=== PATIENT | female | born 1970 | race Caucasian/White ===

== ENCOUNTER 2016-09-30 16:58 | Emergency (ER) | payer MEDICARE, BC, OTHER, MEDICAID ==
[2016-09-30 17:39] VITALS: BP 135/91
--- NOTE | 2016-09-30 17:58 | UC ---
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 Rash was first noted yesterday. She does not seem to be bothered by it. Rash is concentrated in her groin and is not present elsewhere. No history of similar rashes. She has no recent illness. Cortisone cream was applied without improvement. - History of Current Complaint Chief Complaint: UCSkin Stated Complaint: RASH - Allergy/Home Medications Allergies/Adverse Reactions: Allergies Allergy/AdvReac Type Severity Reaction Status Date / Time Azithromycin Allergy Rash Verified 09/30/16 17:26 Fluoxetine [From Prozac] Allergy Rash Verified 09/30/16 17:26 Review of Systems Constitutional: Negative Skin: Rash Eyes: Negative ENT: Negative Respiratory: Negative Cardiovascular: Negative Gastrointestinal: Negative Genitourinary: Negative Motor: Negative Neurovascular: Negative Musculoskeletal: Negative Neurological: Negative Psychological: Negative All Other Systems Reviewed And Are Negative: Yes PMH/Surg Hx/FS Hx/Imm Hx Previously Healthy: No - developmental disability - Surgical History Surgical History: Yes Surgery Procedure, Year, and Place: Hysterectomy. oophorectomy. Bowel obstruction - Family History Known Family History: Positive: Other - no skin disorders, mother and father ALW - Social History Alcohol Use: None Substance Use Type: None Smoking Status (MU): Never Smoked Tobacco Physical Exam Triage Information Reviewed: Yes Completion Of Physical Exam Limited Due To: Other - patient is extremely anxious with a developmental disability, her cooperation is limited Appearance: Well-Appearing - anxious Vital Signs: Initial Vital Signs Temp 97.4 F 09/30/16 17:26 Pulse 92 09/30/16 17:26 Resp 18 09/30/16 17:26 BP 135/91 09/30/16 17:26 Pulse Ox 98 09/30/16 17:26 Vital Signs Reviewed: Yes Skin: Positive: rashes - well demarcated erythematous rash, with confluent macules Course/Dx - Course Course Of Treatment: Exam and location was consistent with cutaneous yeast infection. Recommend topical nystatin and keeping the area clean and dry. - Differential Diagnoses - Skin Complaint Differential Diagnoses: Cellulitis, Eczema, Impetigo, Scabies - Diagnoses Provider Diagnoses: 1. Cutaneous yeast infection Discharge - Discharge Plan Condition: Stable Disposition: HOME Prescriptions: Nystatin CREAM* [Nystatin Cream*] 1 applic TOPICAL BID #1 tube Additional Instructions: Activity: No restrictions Diagnosis: Rash - likely yeast Instructions: 1. Apply nystatin cream twice daily, continue application for 2 days after resolution of rash 2. Please keep the area clean and dry, specifically pat the groin dry after bathing
== END 2016-09-30 18:00 | disposition home or self-care (01) ==
LOC: UCEAST 16:58
DX: B35.6 Tinea cruris (principal); Z88.1 Allergy status to other antibiotic agents
CPT/HCPCS: 99212; G0463

== ENCOUNTER 2016-10-11 15:29 | Emergency (ER) | payer MEDICARE, BC, MEDICAID ==
[2016-10-11 17:09] VITALS: BP 142/98
--- NOTE | 2016-10-11 18:20 | RAD ---
INDICATION: Nasal bone injury COMPARISON: None TECHNIQUE: Routine 3 view imaging was performed. FINDINGS: The anterior nasal bones and the nasal process of the maxilla are intact. The visualized paranasal sinuses are clear. The soft tissue elements are normal. IMPRESSION: NEGATIVE EXAMINATION.
--- NOTE | 2016-10-11 18:21 | RAD ---
INDICATION: Neck pain COMPARISON: None TECHNIQUE: AP and lateral imaging was performed. This is a limited study. FINDINGS: Bones: There are no acute bony findings. C7 is not adequately visualized, however. There is moderate mid cervical facet arthropathy.. Craniocervical junction: The atlantodental interval is normal. There is limited evaluation of the odontoid on the AP view. Alignment: There is tilting of the head to the right. Alignment is otherwise normal Disc spaces: The disc spaces are well-maintained Soft tissues: The prevertebral soft tissues are normal. IMPRESSION: LIMITED STUDY. NO ACUTE FINDINGS IDENTIFIED . MID CERVICAL SPINE ARTHRITIC CHANGE. TILTING OF THE HEAD TO THE RIGHT.
--- NOTE | 2016-10-11 18:53 | UC ---
Head Injury HPI - HPI Summary HPI Summary: FALL YESTERDAY WHILE LEANING FORWARD TO PHOTO [employer]APH[employer] LIBRARIAN i[employer] FROM GROUND. BRUISING TO NOSE AND SCANT CRUSTED BLOOD IN NARES. NO LOC. NO ABNORMAL INTERACTION. NO PAINFUL RESPONSE. INTERACTING WITH STAFF. NO N/V. NO CHANGES IN BALANCE. - History Of Current Complaint Chief Complaint: UCGeneralIllness Stated Complaint: FACIAL INJURY Time Seen by Provider: 10/11/16 17:22 Hx Obtained From: Patient, Family/Public Services Librarian Hx From Patient Unobtainable Due To: Other - LOW MENTAL FUNCTIONING Onset/Duration: Sudden Onset, Lasting Days, Resolved Severity Currently: None Severity Initially: Mild Character: Dull Aggravating Factor(s): Nothing Alleviating Factor(s): Nothing Associated Signs And Symptoms: Positive: Epistaxis - NONE REPORTED, SCANT DRIED BLOOD IN NARES. Negative: LOC (Time In Secs./Mins/Hrs), LOC Duration Unknown, Confusion, Memory Loss, Seizure, Dental Malocclusion, Neck Pain, Nausea, Vomiting - Risk Factors SDH Risk Factor: Negative - Allergies/Home Medications Allergies/Adverse Reactions: Allergies Allergy/AdvReac Type Severity Reaction Status Date / Time Azithromycin Allergy Rash Verified 10/11/16 16:59 Erythromycin Allergy Unknown Verified 10/11/16 17:07 Reaction Details Fluoxetine [From Prozac] Allergy Rash Verified 10/11/16 16:59 Macrolides and Ketolides Allergy Unknown Verified 10/11/16 17:07 Reaction Details Streptogramins Allergy Unknown Verified 10/11/16 17:07 Reaction Details Home Medications: Home Medications Cetirizine* [ZyrTEC*] 10 mg PO DAILY 10/11/16 [History Confirmed 10/11/16] Clonazepam 0.5 mg PO 10/11/16 [History] Conjugated Estrogens TAB* [Premarin TAB*] 7.5 mg PO BEDTIME 10/11/16 [History Confirmed 10/11/16] Docusate CAP* [Colace Cap*] 100 mg PO BID 10/11/16 [History Confirmed 10/11/16] Famciclovir (Bulk) [Famciclovir] 10/11/16 [History] Fenofibrate mg PO 10/11/16 [History] Mirtazapine 7.5 mg PO 10/11/16 [History] Montelukast Sodium TAB* [Singulair 10 MG TAB*] 1 tab PO DAILY 10/11/16 [History Confirmed 10/11/16] Nutritional Supplements [Ensure] 10/11/16 [History] Risperidone [Risperdal] 0.5 mg PO BID 10/11/16 [History Confirmed 10/11/16] Sertraline HCl [Zoloft] 50 mg PO DAILY 10/11/16 [History Confirmed 10/11/16] Wheat Dextrin [Benefiber] 1 pow PO 10/11/16 [History] PMH/Surg Hx/FS Hx/Imm Hx Previously Healthy: Yes - Surgical History Surgical History: Yes Surgery Procedure, Year, and Place: Hysterectomy. oophorectomy. Bowel obstruction. Hernia repair - Family History Known Family History: Positive: Other - no skin disorders, mother and father ALW - Social History Occupation: Disabled Alcohol Use: None Substance Use Type: None Smoking Status (MU): Never Smoked Tobacco Review of Systems Constitutional: Negative Skin: Bruising - NOSE Eyes: Negative ENT: Negative Respiratory: Negative Cardiovascular: Negative Gastrointestinal: Negative Genitourinary: Negative Motor: Negative Neurovascular: Negative Musculoskeletal: Negative Neurological: Negative Psychological: Negative All Other Systems Reviewed And Are Negative: Yes Physical Exam Triage Information Reviewed: Yes Completion Of Physical Exam Limited Due To: Other - LOW MENTAL FUNCTIONING Appearance: Well-Appearing, No Pain Distress, Well-Nourished Vital Signs: Initial Vital Signs Temp 97.2 F 10/11/16 17:00 Pulse 87 10/11/16 17:00 Resp 18 10/11/16 17:00 BP 142/98 10/11/16 17:00 Pulse Ox 99 10/11/16 17:00 Vital Signs Reviewed: Yes Eye Exam: Normal Eyes: Positive: Conjunctiva Clear ENT Exam: Normal ENT: Positive: Normal ENT inspection, Hearing grossly normal, Pharynx normal, TMs normal Dental Exam: Normal Neck exam: Normal Neck: Positive: Supple, Nontender Respiratory Exam: Normal Respiratory: Positive: Chest non-tender, Lungs clear, Normal breath sounds, No respiratory distress, No accessory muscle use Cardiovascular Exam: Normal Cardiovascular: Positive: RRR, No Murmur, Pulses Normal, Brisk Capillary Refill Abdominal Exam: Normal Abdomen Description: Positive: Nontender, No Organomegaly Musculoskeletal Exam: Normal Musculoskeletal: Positive: Strength Intact, ROM Intact, No Edema Neurological Exam: Normal Neurological: Positive: Alert, Muscle Tone Normal Psychological Exam: Normal Psychological: Positive: Normal Response To Family Skin Exam: Normal Head Injury Course/Dx - Differential Dx/Diagnosis Differential Diagnosis/HQI/PQRI: Concussion Without LOC, Contusion, Nasal Fracture Provider Diagnoses: HEAD INJURY. NASAL CONTUSION Discharge - Discharge Plan Condition: Stable Disposition: HOME Patient Education Materials: Head Injury (ED), Nasal Contusion (ED) Referrals: [facility] [place] PHYSICIAN REFERRAL [Outside]
== END 2016-10-11 18:57 | disposition home or self-care (01) ==
LOC: UCEAST 15:29
DX: S09.90XA Unspecified injury of head, initial encounter (principal); S00.33XA Contusion of nose, initial encounter; W18.39XA Other fall on same level, initial encounter; Y93.89 Activity, other specified; Y92.9 Unspecified place or not applicable; Z88.1 Allergy status to other antibiotic agents; Z88.8 Allergy status to other drugs, medicaments and biological substances
CPT/HCPCS: 70160; 72040; 99212; G0463

== ENCOUNTER 2017-06-13 13:39 | Emergency (ER) | payer MEDICARE, BC, MEDICAID ==
[2017-06-13 14:16] VITALS: BP 106/77
--- NOTE | 2017-07-06 16:24 | UC ---
El Chapa Nikita, scribed for July Goldberg DO on 06/13/17 at 1519 . Respiratory Complaint HPI - HPI Summary HPI Summary: This patient is a 46 year old F presenting to [facility] with a chief complaint of URI since 8 days ago. The CC is described as constant and worsening since onset. Symptoms aggravated by nothing. Symptoms alleviated by nothing. Mother reports cough (nonproductive), rhinorrhea, congestion, and decreased appetite. Mother denies SOB, fever, chills, urinary symptoms, ear ache, sore throat, and abdominal pain. PMHx of bronchitis. - History of Current Complaint Chief Complaint: UCRespiratory Stated Complaint: URI Time Seen by Provider: 06/13/17 15:09 Hx Obtained From: Family/Marketing Associate Hx From Patient Unobtainable Due To: Other - Obvious developmental delay Onset/Duration: Sudden Onset - 8 days ago, Lasting Days - 8 days ago, Still Present Timing: Constant Character: Cough: Nonproductive Aggravating Factors: Nothing Alleviating Factors: Nothing Associated Signs And Symptoms: Positive: URI - Mother reports cough ( nonproductive), rhinorrhea, congestion, and decreased appetite. Mother denies SOB, fever, chills, urinary symptoms, ear ache, sore throat, and abdominal pain. - Allergies/Home Medications Allergies/Adverse Reactions: Allergies Allergy/AdvReac Type Severity Reaction Status Date / Time Erythromycin Allergy Unknown Verified 06/13/17 14:10 Reaction Details Fluoxetine [From Prozac] Allergy Rash Verified 06/13/17 14:10 Macrolides and Ketolides Allergy Unknown Verified 06/13/17 14:10 Reaction Details Streptogramins Allergy Unknown Verified 06/13/17 14:10 Reaction Details PMH/Surg Hx/FS Hx/Imm Hx Other Endocrine History: Denies DM Other Cardiovascular History: Denies CAD Respiratory History: Bronchitis - Surgical History Surgical History: Yes Surgery Procedure, Year, and Place: Hysterectomy. oophorectomy. Bowel obstruction. Hernia repair - Family History Known Family History: Positive: Hypertension, Other - no skin disorders, mother and father ALW - Social History Alcohol Use: None Substance Use Type: None Smoking Status (MU): Never Smoked Tobacco Review of Systems Constitutional: Other - Denies fever, chills ENT: Other - rhinorrhea; Denies sore throat, ear ache. Respiratory: Cough - Non-productive, Other - Congestion; Denies SOB Gastrointestinal: Other - decreased appetite; Denies abdominal pain. Genitourinary: Other - Denies urinary symptoms. All Other Systems Reviewed And Are Negative: Yes Physical Exam Triage Information Reviewed: Yes Appearance: Well-Appearing, No Pain Distress, Well-Nourished Vital Signs: Initial Vital Signs Temp 97.8 F 06/13/17 14:13 Pulse 86 06/13/17 14:13 Resp 18 06/13/17 14:13 BP 106/77 06/13/17 14:13 Pulse Ox 99 06/13/17 14:13 Vital Signs Reviewed: Yes Eyes: Positive: Conjunctiva Clear. Negative: Discharge ENT: Positive: Hearing grossly normal, TMs normal. Negative: Tonsillar swelling , Tonsillar exudate, Trismus, Muffled/hoarse voice Neck exam: Normal Neck: Positive: Supple Respiratory: Positive: Lungs clear, Normal breath sounds, No respiratory distress, No accessory muscle use Cardiovascular: Positive: RRR, No Murmur Musculoskeletal Exam: Normal Neurological: Positive: Alert, Muscle Tone Normal Psychological Exam: Normal Psychological: Positive: Age Appropriate Behavior Skin Exam: Normal, Other - Warm, Dry, Normal color UC Diagnostic Evaluation - Laboratory O2 Sat by Pulse Oximetry: 99 Respiratory Course/Dx - Course Course Of Treatment: This patient is a 46 year old F presenting to [facility] with a chief complaint of URI since 8 days ago. The CC is described as constant and worsening since onset. Symptoms aggravated by nothing. Symptoms alleviated by nothing. Mother reports cough (nonproductive), rhinorrhea, congestion, and decreased appetite. Mother denies SOB, fever, chills, urinary symptoms, ear ache , sore throat, and abdominal pain. Medications reviewed this visit. Pt will be discharged home. Pt and family are agreeable with this plan. - Differential Dx/Diagnosis Provider Diagnoses: Acute Bronchitis Discharge - Discharge Plan Condition: Stable Disposition: HOME Prescriptions: Benzonatate CAP* [Tessalon 100 MG CAP*] 100 mg PO TID PRN #30 cap PRN Reason: Cough Cefdinir [Cefdinir 300 MG CAP] 300 mg PO BID #20 cap guaiFENesin ER TAB [Mucinex*] 600 mg PO BID PRN #1 box PRN Reason: Cough Patient Education Materials: Acute Bronchitis (ED) Referrals: Zackary Bateman MD [Primary Care Provider] - 7 Days Additional Instructions: EXPECTORANT MEDICATION: An expectorant medicine has been prescribed. This type of drug makes mucous thinner, helping the sinuses, nose, and bronchial tubes to remain free of pus and mucous. Expectorants make a cough less severe and more comfortable, and help infected sinuses drain. In general, antihistamines defeat the purpose of the expectorant by making mucous thicker. They should be avoided unless specifically recommended by your physician. TESSALON PERLES: You have received a prescription for Tessalon Perles (benzonatate). This is a non-narcotic medicine for relief of cough. It usually works in about 15- 20 minutes and lasts around four hours. Tessalon Perles should be swallowed. They should not be chewed or dissolved in the mouth (this can produce temporary numbing of the mouth and choking can occur). If you develop any adverse effects such as wheezing, shortness of breath, hives, rash, itching, or lightheadedness, please return at once. ANTIBIOTICS ARE NOT CURRENTLY INDICATED FOR YOUR CONDITION. HOWEVER, IF YOUR SYMPTOMS WORSEN OR PERSIST FOR OVER THE NEXT 3-5 DAYS, YOU CAN TAKE THE FOLLOWING MEDICATION: CEPHALOSPORINS: An antibiotic of the cephalosporin class has been prescribed. This type of antibiotic covers a wide variety of infections, including those of the skin, lungs, middle ear, and urinary tract. This antibiotic is somewhat similar to the penicillin family. In rare cases , a person who is allergic to penicillin will also be allergic to this medication. If you have had a severe allergic reaction to penicillin, and have not taken this antibiotic since that time, notify your doctor. Antibiotics which cover many germs ("broad spectrum" antibiotics) are more likely to cause diarrhea or "yeast" infections. Women prone to vaginal yeast problems may suffer an attack after taking this antibiotic. In infants, oral thrush (white spots "stuck" on the cheek) or yeast diaper rash may result. See your doctor if these problems occur. Call the doctor at once if you develop hives, itching, shortness of breath , or lightheadedness. ANYTIME YOU TAKE AN ANTIBIOTIC, IT IS IMPORTANT TO REPLENISH THE BODY'S SUPPLY OF "GOOD BACTERIA." YOU CAN GET GOOD BACTERIA FROM HIGH QUALITY CULTURED FOODS SUCH LOCAL YOGURT, SOUR KRAUT, HERNANDEZ LEIGHA, NATURALLY FERMENTED PICKLES AND PROBIOTIC DRINKS. YOU CAN ALSO GET GOOD BACTERIA FROM A PROBIOTIC SUPPLEMENT. The documentation as recorded by the scribeEl Nikita accurately reflects the service I personally performed and the decisions made by me, July Goldberg DO.
== END 2017-06-13 15:53 | disposition home or self-care (01) ==
LOC: UCEAST 13:39
DX: J20.9 Acute bronchitis, unspecified (principal); Z90.710 Acquired absence of both cervix and uterus; Z88.1 Allergy status to other antibiotic agents; Z88.8 Allergy status to other drugs, medicaments and biological substances
CPT/HCPCS: 99212; G0463

== ENCOUNTER 2018-05-08 10:29 | Day surgery (SDC) | payer MEDICARE, BC, MEDICAID ==
[~2018-05-08 10:29] MED LIST: Buffered Lidocaine 0.9% SYRIN* 5 ML/SYR SYRINGE INTRADERM ONE; Dexamethasone IV* 4 MG/ML 1 ML (4 MG) IV SLOW PU ONE; Famotidine IV* 10 MG/ML 2 ML (20 mg) IV ONE; Morphine INJ* 2 MG/ML 1 ML SYRINGE (TWO MG - NEW SYRINGE VERSION) IV PRN; Naloxone* 0.4 MG/ML 1 ML VIAL IV PRN; Ofloxacin 0.3% OTIC.SOL* 5 ML BTL ONE; Ondansetron TAB* 4 MG ONE; PROCHLORPERAZINE INJ 5 MG/ML 2 ML VIAL IV PRN; fentaNYL* 50 MCG/ML 2 ML VIAL (100 MCG VIAL) IV PRN
[2018-05-08] MEDS ORDERED: KETAMINE HCL* 50 MG/ML 10 ML VIAL ONE (11:45)
[2018-05-08] MEDS ORDERED: Scopolamine 1.5 mg* PATCH ONE (12:30)
[2018-05-08] MEDS ORDERED: Ondansetron INJ* 2 MG/ML VIAL ONE (12:30)
[2018-05-08] MEDS ORDERED: Ondansetron ODT TAB* 4 MG ONE (14:43)
[2018-05-08] MEDS ORDERED: Prochlorperazine TAB* 10 MG PO ONE (15:00)
[2018-05-08 15:45] VITALS: BP 130/77
--- NOTE | 2018-05-09 00:04 | OP ---
DATE OF OPERATION: 05/08/18 - [facility] DATE OF : 70 ATTENDING SURGEON: Tomás Luna MD WO[employer] GANG SAWYER: None. ANESTHESIA: General. PRE-OP DIAGNOSIS: Bilateral cerumen impactions with conductive hearing loss. POST-OP DIAGNOSIS: Bilateral cerumen impactions with conductive hearing loss. OPERATIVE PROCEDURE: Exam under anesthesia of the ears with removal of cerumen and also 12-lead EKG. INDICATION: This is a 47-year-old woman with mental retardation who has had some difficulty hearing and completely impacted external auditory canals. Decision was made to bring her to the operating room for removal of the cerumen. Also, while under anesthesia, it was requested that the patient have a 12-lead EKG performed to serve as a baseline. FINDINGS: Densely impacted ear canals with normal-appearing tympanic members and middle ear spaces. DESCRIPTION OF PROCEDURE: On 05/08/18, the patient was brought to the operating room, general anesthesia was induced. She had been given IM ketamine and then was subsequently given inhalational sevoflurane. The patient was positioned and time- out was performed. The 12-lead EKG was preformed first. After that was concluded, the left ear was addressed with microscope. The patient had very narrow ear canals. The cerumen impactions were removed under the microscope with a combination of wax curette and suctioned. Saline irrigation was also used to help soften some of the wax. Both ears were cleaned in identical fashion. There was minimal ear canal trauma. The tympanic membranes were well visualized as intact with normal landmarks. Once the cerumen was removed. The patient was returned to care of the anesthesiologist and brought to the PACU in stable condition. [id number]/[facility] #: [id number] [facility] [place] [facility]
== END 2018-05-08 15:48 | disposition home or self-care (01) ==
LOC: OR 10:29
PROVIDERS: ATTEND Otolaryngology
DX: H61.23 Impacted cerumen, bilateral (principal); H90.0 Conductive hearing loss, bilateral; F79 Unspecified intellectual disabilities; F84.0 Autistic disorder; J30.2 Other seasonal allergic rhinitis; E78.5 Hyperlipidemia, unspecified
CPT/HCPCS: 93005; A9270-GY; J2405; Q0164